=== PATIENT | female | born 1985 | race African-American/Black ===

== ENCOUNTER 2020-04-13 12:10 | Inpatient (IN) | payer SELFPAY ==
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
[2020-04-13 12:44] LABS: ABSOLUTE EOSINOPHILS # (AUTO) 0.1 10^3/uL (0.0-0.6); ABSOLUTE LYMPHOCYTES (AUTO) 2.3 10^3/uL (0.5-4.7); ABSOLUTE MONOCYTES (AUTO) 0.5 10^3/uL (0.1-1.4); ABSOLUTE NEUT (AUTO) 10.1 10^3/uL (1.7-8.2); BASOPHILS % (AUTO) 0.4 % (0-2); EOSINOPHILS % (AUTO) 0.7 % (0-6); HEMATOCRIT 42.7 % (36.0-47.0); HEMOGLOBIN 14.3 g/dL (12.0-15.5); LYMPHOCYTES % (AUTO) 17.4 % (13-45); MEAN CORPUSCULAR HGB CONC 33.4 g/dL (32.0-36.0); MEAN CORPUSCULAR VOLUME 87 fl (80-97); PLATELET COUNT 417 10^3/uL (150-450); RED BLOOD COUNT 4.93 10^6/uL (3.72-5.28); RED CELL DISTRIBUTION WIDTH 14.6 % (11.5-14.0); SEGMENTED NEUTROPHILS % (AUTO) 77.5 % (42-78); TOTAL CELLS COUNTED % (AUTO) 100 %; WHITE BLOOD COUNT 13.1 10^3/uL (4.0-10.5)
[2020-04-13 13:09] LABS: APPEARANCE,URINE SLIGHTLY-CLOUDY; BILIRUBIN,URINE NEGATIVE (NEGATIVE); COLOR,URINE YELLOW; GLUCOSE, URINE NEGATIVE (NEGATIVE); KETONES,URINE TRACE mg/dL (NEGATIVE); PROTEIN,URINE 100 mg/dL (NEGATIVE); URINE SPECIFIC GRAVITY 1.019; UROBILINOGEN,URINE NEGATIVE mg/dL (<2.0)
[2020-04-13 13:12] LABS: ALBUMIN 4.4 g/dL (3.5-5.0); ALKALINE PHOSPHATASE 90 U/L (38-126); ANION GAP 14 (5-19); ASPARTATE AMINO TRANSFERASE 27 U/L (14-36); BILIRUBIN,TOTAL 0.3 mg/dL (0.2-1.3); BLOOD UREA NITROGEN 12 mg/dL (7-20); CALCIUM 9.2 mg/dL (8.4-10.2); CARBON DIOXIDE 22 mmol/L (22-30); CHLORIDE 101 mmol/L (98-107); GLUCOSE 197 mg/dL (75-110); POTASSIUM 4.2 mmol/L (3.6-5.0); TOTAL PROTEIN 7.7 g/dL (6.3-8.2)
[2020-04-13 13:16] LABS: ACETAMINOPHEN < 10 ug/mL (10-30); ALCOHOL < 10 mg/dL (NONE DETECTED)
[2020-04-13 13:17] LABS: URINE AMPHETAMINES SCREEN NEGATIVE; URINE BARBITURATES SCREEN NEGATIVE; URINE BENZODIAZEPINES SCREEN NEGATIVE; URINE COCAINE SCREEN NEGATIVE; URINE MARIJUANA (THC) SCREEN NEGATIVE; URINE METHADONE SCREEN NEGATIVE; URINE PHENCYCLIDINE SCREEN NEGATIVE
[2020-04-13 14:36] LABS: ARTERIAL BLOOD BASE EXCESS -6.7 mmol/L; ARTERIAL BLOOD H2CO3 1.01 mmol/L (1.05-1.35); ARTERIAL BLOOD HCO3 17.9 mmol/L (20-24); ARTERIAL BLOOD O2 SATURATION 98.5 % (94-98); ARTERIAL BLOOD PCO2 33.4 mmHg (35-45); ARTERIAL BLOOD PH 7.35 (7.35-7.45); ARTERIAL BLOOD PO2 129.3 mmHg (80-100); ARTERIAL BLOOD TOTAL CO2 18.9 mmol/L (21-25)
[2020-04-13 14:38] LABS: ARTERIAL BLOOD FIO2 ROOM AIR
[2020-04-13] MEDS ORDERED: IPRATROPIUM/ALBUTEROL 0.5-2.5 MG/3 ML AMPUL NEB ONE (14:51)
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
[2020-04-13] MEDS ORDERED: ALBUTEROL SULFATE 0.083% NEB 2.5 MG/3 ML AMPUL NEB PRN (17:02)
[2020-04-13] MEDS ORDERED: ONDANSETRON HCL INJ/PF 4 MG/2 ML SDV IV PRN (17:26)
[2020-04-13] MEDS ORDERED: ACETAMINOPHEN 325 MG TABLET PO PRN (17:26)
[2020-04-13] MEDS ORDERED: MAG HYDROX/AL HYDROX/SIMETH SUSP 30 ML UDCUP PO PRN (17:26)
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
[2020-04-13] MEDS ORDERED: METOPROLOL TARTRATE PF/INJ 5 MG/5 ML SDV IV ONE ×2 (18:00→21:06)
[2020-04-13] MEDS ORDERED: HALOPERIDOL LACTATE INJ 5 MG/1 ML VIAL IV PRN (18:37)
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
[2020-04-13] MEDS: NICOTINE 14 MG/24 HR PATCH.TD24 TD SCH (19:00)
--- NOTE | 2020-04-13 19:05 | EKG REPORT ---
SEVERITY:- BORDERLINE ECG - SINUS TACHYCARDIA BORDERLINE T ABNORMALITIES, INFERIOR LEADS : Confirmed by: Dyllan Cunningham MD 13-Apr-2020 19:03:49
[2020-04-13] MEDS: ENOXAPARIN SODIUM INJ 40 MG/0.4 ML DISP.SYRIN SUBCUT SCH (20:01)
[2020-04-13] MEDS: FAMOTIDINE 20 MG TABLET PO SCH (21:12)
[2020-04-13] MEDS: RINGERS SOLUTION,LACTATED 1,000 ML IV PRN (21:13)
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
[2020-04-14] MEDS ORDERED: HALOPERIDOL LACTATE INJ 5 MG/1 ML VIAL IV PRN (02:54)
[2020-04-14 06:58] LABS: ABSOLUTE LYMPHOCYTES (AUTO) 0.7 10^3/uL (0.5-4.7); ABSOLUTE MONOCYTES (AUTO) 0.4 10^3/uL (0.1-1.4); ABSOLUTE NEUT (AUTO) 7.7 10^3/uL (1.7-8.2); BASOPHILS % (AUTO) 0.4 % (0-2); EOSINOPHILS % (AUTO) 0.1 % (0-6); HEMATOCRIT 35.7 % (36.0-47.0); HEMOGLOBIN 12.6 g/dL (12.0-15.5); LYMPHOCYTES % (AUTO) 7.5 % (13-45); MEAN CORPUSCULAR HEMOGLOBIN 29.6 pg (27.0-33.4); MEAN CORPUSCULAR HGB CONC 35.3 g/dL (32.0-36.0); MEAN CORPUSCULAR VOLUME 84 fl (80-97); MONOCYTES % (AUTO) 4.6 % (3-13); PLATELET COUNT 277 10^3/uL (150-450); RED BLOOD COUNT 4.26 10^6/uL (3.72-5.28); RED CELL DISTRIBUTION WIDTH 14.6 % (11.5-14.0); SEGMENTED NEUTROPHILS % (AUTO) 87.4 % (42-78); TOTAL CELLS COUNTED % (AUTO) 100 %; WHITE BLOOD COUNT 8.8 10^3/uL (4.0-10.5)
[2020-04-14 07:17] LABS: ANION GAP 7 (5-19); BLOOD UREA NITROGEN 10 mg/dL (7-20); CALCIUM 9.2 mg/dL (8.4-10.2); CARBON DIOXIDE 23 mmol/L (22-30); CHLORIDE 107 mmol/L (98-107); GLUCOSE 126 mg/dL (75-110); POTASSIUM 4.1 mmol/L (3.6-5.0)
[2020-04-14] MEDS ORDERED: INFLUENZA QUAD (6MOS+) 2020-21 VAC 0.5 ML SYR IM ONE (08:00)
[2020-04-14] MEDS: DOCUSATE SODIUM 100 MG CAPSULE PO SCH (09:01)
[2020-04-14] MEDS: FAMOTIDINE 20 MG TABLET PO SCH ×2 (09:02→21:05)
[2020-04-14] MEDS: AMLODIPINE BESYLATE 5 MG TABLET PO SCH (09:02)
[2020-04-14] MEDS: NICOTINE 14 MG/24 HR PATCH.TD24 TD SCH (09:05)
[2020-04-14] MEDS: ENOXAPARIN SODIUM INJ 40 MG/0.4 ML DISP.SYRIN SUBCUT SCH (09:06)
[2020-04-14] MEDS ORDERED: ONDANSETRON HCL INJ/PF 4 MG/2 ML SDV IV PRN (10:00)
[2020-04-14] MEDS ORDERED: LORAZEPAM INJ 2 MG/1 ML VIAL IV ONE (10:33)
[2020-04-14] MEDS ORDERED: METOPROLOL TARTRATE PF/INJ 5 MG/5 ML SDV IV ONE (11:33)
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
[2020-04-14] MEDS ORDERED: CLONIDINE 0.1 MG/24 HR PATCH.TDWK TD SCH (14:00)
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
[2020-04-15] MEDS: RINGERS SOLUTION,LACTATED 1,000 ML IV PRN (06:20)
--- NOTE | 2020-04-15 06:39 | PSYCHOLOGICAL NOTE ---
Psych Note - Psych Note Date seen by psych provider: 04/14/20 Psych Note: Patient is currently under IVC Medication recommendations per [facility]'s contracted psychiatrist are as follows: Change Haldol to 5mg daily Add Thorazine 50-100mg every 6 hours as needed Add Cogentin 1mg daily Impression/Plan: patient is recommended to continue under IVC. Dr. Sheffield was consulted on the care and management for this patient.
[2020-04-15] MEDS ORDERED: CHLORPROMAZINE HCL 50 MG TABLET PO PRN (08:19)
--- NOTE | 2020-04-15 09:28 | RADIOLOGY REPORT (SQ) ---
EXAM DESCRIPTION: CTA CHEST IMAGES COMPLETED DATE/TIME: 04/15/2020 9:13 am REASON FOR STUDY: tachycardia, elevated d dimer COMPARISON: None. TECHNIQUE: CT scan of the chest performed using helical scanning technique with dynamic intravenous contrast injection. Images reviewed with lung, soft tissue and bone windows. Reconstructed coronal and sagittal MPR images reviewed. Additional 3 dimensional post-processing performed to develop Maximal Intensity Projection images (DE P). All images stored on PACS. All CT scanners at this facility use dose modulation, iterative reconstruction, and/or weight based d osing when appropriate to reduce radiation dose to as low as reasonably achievable (ALARA). [facility]: Dose Right [facility]: CareDose [facility]: Dose Right [facility]: Teradose 4D [facility]: [employer] CONTRAST TYPE AND DOSE: contrast/concentration: Isovue 350.00 mmol/ml; Total Contrast Delivered: 85. 0 ml; Total Saline Delivered: 64.9 ml Contrast bolus optimized for the pulmonary arteries. Not diagnostic for the aorta. RENAL FUNCTION: BUN 10, creatinine 0.67 RADIATION DOSE: CT Rad equipment meets quality standard of care and radiation dose reduction techniq ues were employed. CTDIvol: 15.4 - 23.5 mGy. DLP: 547 mGy-cm. . LIMITATIONS: None. FINDINGS: LUNGS AND PLEURA: Patchy bilateral mainly peripheral ground-glass opacities suspicious for pulmonary edema or atypical pneumonia. AORTA AND GREAT VESSELS: No aneurysm. Contrast bolus not optimized for the aorta. HEART: No pericardial effusion. No significant coronary artery calcifications. PULMONARY ARTERIES: No emboli visualized in the main pulmonary arteries or the segmental branches. HILAR AND MEDIASTINAL STRUCTURES: Small hilar nodes most likely reactive. HARDWARE: None in the chest. UPPER ABDOMEN: No significant findings. Limited exam. THYROID AND OTHER SOFT TISSUES: No masses. No adenopathy. BONES: No acute or significant finding. 3D MIPS: Confirm above findings. OTHER: No other significant finding. IMPRESSION: Patchy bilateral ground-glass opacities differential includes pulmonary edema versus aty pical pneumonia. No pulmonary emboli. COMMENT: Imaging features can be seen with COVID-19 pneumonia, though are nonspecific and can occu r with a variety of infectious and noninfectious processes. PneInd Quality ID # [id number]: Final reports with documentation of one or more dose reduction techniques (e.g., Au tomated exposure control, adjustment of the mA and/or kV according to patient size, use of iterative reconstruction technique) TECHNICAL DOCUMENTATION: JOB ID: [id number] 2010 [employer]- All Rights Reserved Reading location - IP/workstation name: [email or web address]
[2020-04-15] MEDS: HALOPERIDOL 5 MG TABLET PO SCH (09:47)
[2020-04-15] MEDS: DOCUSATE SODIUM 100 MG CAPSULE PO SCH (09:47)
[2020-04-15] MEDS: ENOXAPARIN SODIUM INJ 40 MG/0.4 ML DISP.SYRIN SUBCUT SCH (09:47)
[2020-04-15] MEDS: NICOTINE 14 MG/24 HR PATCH.TD24 TD SCH (09:47)
[2020-04-15] MEDS: AMLODIPINE BESYLATE 5 MG TABLET PO SCH (09:47)
[2020-04-15] MEDS: FAMOTIDINE 20 MG TABLET PO SCH ×2 (09:48→22:06)
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
[2020-04-15] MEDS: BENZTROPINE MESYLATE 1 MG TABLET PO SCH (22:06)
[2020-04-16 04:56] LABS: HEMOGLOBIN 11.6 g/dL (12.0-15.5); MEAN CORPUSCULAR HEMOGLOBIN 29.3 pg (27.0-33.4); MEAN CORPUSCULAR HGB CONC 34.3 g/dL (32.0-36.0); MEAN CORPUSCULAR VOLUME 86 fl (80-97); PLATELET COUNT 238 10^3/uL (150-450); RED BLOOD COUNT 3.97 10^6/uL (3.72-5.28); RED CELL DISTRIBUTION WIDTH 14.9 % (11.5-14.0); WHITE BLOOD COUNT 8.1 10^3/uL (4.0-10.5)
[2020-04-16 05:09] LABS: ANION GAP 5 (5-19); BLOOD UREA NITROGEN 8 mg/dL (7-20); CALCIUM 8.5 mg/dL (8.4-10.2); CARBON DIOXIDE 25 mmol/L (22-30); CHLORIDE 105 mmol/L (98-107); GLUCOSE 98 mg/dL (75-110); POTASSIUM 4.2 mmol/L (3.6-5.0)
[2020-04-16] MEDS: DOCUSATE SODIUM 100 MG CAPSULE PO SCH (09:56)
[2020-04-16] MEDS: AMLODIPINE BESYLATE 5 MG TABLET PO SCH (09:56)
[2020-04-16] MEDS: ENOXAPARIN SODIUM INJ 40 MG/0.4 ML DISP.SYRIN SUBCUT SCH (09:56)
[2020-04-16] MEDS: HALOPERIDOL 5 MG TABLET PO SCH (09:56)
[2020-04-16] MEDS: FAMOTIDINE 20 MG TABLET PO SCH ×2 (09:56→21:04)
[2020-04-16] MEDS: NICOTINE 14 MG/24 HR PATCH.TD24 TD SCH (09:57)
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
[2020-04-16] MEDS: BENZTROPINE MESYLATE 1 MG TABLET PO SCH (21:04)
[2020-04-17] MEDS: DOCUSATE SODIUM 100 MG CAPSULE PO SCH (09:48)
[2020-04-17] MEDS: NICOTINE 14 MG/24 HR PATCH.TD24 TD SCH (09:48)
[2020-04-17] MEDS: HALOPERIDOL 5 MG TABLET PO SCH (09:48)
[2020-04-17] MEDS: FAMOTIDINE 20 MG TABLET PO SCH ×2 (09:48→21:37)
[2020-04-17] MEDS: ENOXAPARIN SODIUM INJ 40 MG/0.4 ML DISP.SYRIN SUBCUT SCH (09:49)
[2020-04-17] MEDS: AMLODIPINE BESYLATE 5 MG TABLET PO SCH (09:49)
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
[2020-04-17] MEDS: BENZTROPINE MESYLATE 1 MG TABLET PO SCH (21:37)
[2020-04-18] MEDS: HALOPERIDOL 5 MG TABLET PO SCH (09:48)
[2020-04-18] MEDS: AMLODIPINE BESYLATE 5 MG TABLET PO SCH (09:48)
[2020-04-18] MEDS: DOCUSATE SODIUM 100 MG CAPSULE PO SCH (09:48)
[2020-04-18] MEDS: FAMOTIDINE 20 MG TABLET PO SCH ×2 (09:48→23:19)
[2020-04-18] MEDS: NICOTINE 14 MG/24 HR PATCH.TD24 TD SCH (09:49)
[2020-04-18] MEDS: ENOXAPARIN SODIUM INJ 40 MG/0.4 ML DISP.SYRIN SUBCUT SCH (09:49)
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
[2020-04-18] MEDS: BENZTROPINE MESYLATE 1 MG TABLET PO SCH (23:19)
[2020-04-19] MEDS: ENOXAPARIN SODIUM INJ 40 MG/0.4 ML DISP.SYRIN SUBCUT SCH (09:13)
[2020-04-19] MEDS: AMLODIPINE BESYLATE 5 MG TABLET PO SCH (09:14)
[2020-04-19] MEDS: NICOTINE 14 MG/24 HR PATCH.TD24 TD SCH (09:15)
[2020-04-19] MEDS: FAMOTIDINE 20 MG TABLET PO SCH ×2 (09:15→21:42)
[2020-04-19] MEDS: DOCUSATE SODIUM 100 MG CAPSULE PO SCH (09:15)
[2020-04-19] MEDS: HALOPERIDOL 5 MG TABLET PO SCH (09:15)
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
[2020-04-19] MEDS: BENZTROPINE MESYLATE 1 MG TABLET PO SCH (21:42)
[2020-04-20] MEDS: ENOXAPARIN SODIUM INJ 40 MG/0.4 ML DISP.SYRIN SUBCUT SCH (09:48)
[2020-04-20] MEDS: FAMOTIDINE 20 MG TABLET PO SCH (09:49)
[2020-04-20] MEDS: NICOTINE 14 MG/24 HR PATCH.TD24 TD SCH (09:49)
[2020-04-20] MEDS: DOCUSATE SODIUM 100 MG CAPSULE PO SCH (09:49)
[2020-04-20] MEDS: HALOPERIDOL 5 MG TABLET PO SCH (09:49)
[2020-04-20] MEDS: AMLODIPINE BESYLATE 5 MG TABLET PO SCH (10:10)
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
[2020-04-20 13:05] VITALS: BP 102/63
== END 2020-04-20 13:38 | DRG 189 ==
LOC: ER 12:10 → EH 16:31 → 3S 18:47 → 5 04-17 06:41
PROVIDERS: ADMIT Internal Medicine; ATTEND Internal Medicine
PROC: 5A09357 Assistance with Respiratory Ventilation, Less than 24 Consecutive Hours, Continuous Positive Airway Pressure (ICD-10-PCS; principal; 2020-04-13)
DX: J96.01 Acute respiratory failure with hypoxia (principal); T17.890A Other foreign object in other parts of respiratory tract causing asphyxiation, initial encounter; T14.91XA Suicide attempt, initial encounter; X71.1XXA Intentional self-harm by drowning and submersion while in swimming pool, initial encounter; F20.9 Schizophrenia, unspecified; E66.9 Obesity, unspecified; I10 Essential (primary) hypertension; M54.2 Cervicalgia; R00.0 Tachycardia, unspecified; R50.9 Fever, unspecified; F17.200 Nicotine dependence, unspecified, uncomplicated; Z79.899 Other long term (current) drug therapy; Z91.14 Patient's other noncompliance with medication regimen; Z23 Encounter for immunization; Z78.1 Physical restraint status; Z68.38 Body mass index [BMI] 38.0-38.9, adult
CPT/HCPCS: 36415; 51702; 70450; 71045; 71275; 72125; 80048; 80053; 80307; 81001; 82550; 82803; 83036; 83605; 84443; 84484; 84703; 85025; 85027; 85379; 87040; 87070; 87086; 87205; 93005; 93010; 94640; 94667; 94799; 99285; J1630; J1650; J2060; J3490; J7120